=== PATIENT | male | born 2000 | race Caucasian/White ===

== ENCOUNTER 2020-03-01 14:04 | Emergency (ER) | payer MEDICAID ==
[~2020-03-01] VITALS: Ht 167.6 cm; Wt 97.5 kg
[2020-03-01 14:06] VITALS: Ht 167.6 cm; Wt 97.5 kg
[2020-03-01 16:26] VITALS: BP 157/95
== END 2020-03-01 16:26 | disposition home or self-care (01) ==
LOC: ED 14:04
DX: B34.9 Viral infection, unspecified (principal); Z20.828 Contact with and (suspected) exposure to other viral communicable diseases
CPT/HCPCS: U0003